=== PATIENT | male | born 1990 | race Caucasian/White ===

== ENCOUNTER 2016-07-21 18:23 | Emergency (ER) | payer OTHER ==
[~2016-07-21] VITALS: Ht 170.2 cm; Wt 77.0 kg
[2016-07-21 18:34] VITALS: TEMP 36.8; Ht 170.2 cm; Wt 77.0 kg
--- NOTE | 2016-07-21 19:16 | DIAGNOSTIC IMAGING REPORT ---
LEFT KNEE 3 VIEWS HISTORY: left knee injury COMPARISON: None. FINDINGS: There is no fracture or dislocation. Prepatellar soft tissue swelling. No significant knee effusion. No radiopaque foreign bodies. IMPRESSION: No fractures. Anterior soft tissue swelling. Electronically signed by: Cirilo Montoya M.D. 07/21/2016 7:15 PM Dictated Date/Time: 07/21/2016 7:13 PM
--- NOTE | 2016-07-21 19:35 | EMERGENCY ROOM VISIT NOTE ---
ED Visit Note First contact with patient: 18:38 I have personally seen and evaluated the patient with the physician insurance sales assistant. I agree with the diagnostic/management decisions and have personally been involved in these decisions and agree with the diagnosis.
[2016-07-21] MEDS ORDERED: CEPHALEXIN 500MG HOME PACK 1 EA BTL PO ONE (19:45)
[2016-07-21] MEDS ORDERED: SEPTRA DS HOME PACK 1 EA VIAL PO ONE (19:45)
[2016-07-21] MEDS ORDERED: CEPH500C PO (20:12)
[2016-07-21] MEDS ORDERED: SULF800T23 PO (20:12)
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
[2016-07-21 20:21] VITALS: BP 123/73; PULSE 100; O2SAT 99
== END 2016-07-21 20:23 | disposition home or self-care (01) ==
LOC: C.EDB 18:23 → C.EDD 20:23
DX: S89.92XA Unspecified injury of left lower leg, initial encounter (principal); S80.212A Abrasion, left knee, initial encounter; M25.562 Pain in left knee; L03.116 Cellulitis of left lower limb; Y04.0XXA Assault by unarmed brawl or fight, initial encounter; Y92.89 Other specified places as the place of occurrence of the external cause

== ENCOUNTER 2016-10-20 21:15 | Emergency (ER) | payer OTHER ==
[~2016-10-20] VITALS: Ht 170.2 cm; Wt 84.4 kg
[2016-10-20 21:17] VITALS: TEMP 36.6; Ht 170.2 cm; Wt 84.4 kg
--- NOTE | 2016-10-20 22:19 | DIAGNOSTIC IMAGING REPORT ---
RIGHT PELVIS/UNILATERAL HIP 2-3VIEWS CLINICAL HISTORY: fall 20 ft, right hip/pelvic pain Right COMPARISON STUDY: None. FINDINGS: No fracture or dislocation within the pelvis or hips. The sacrum is intact. Soft tissues are unremarkable. IMPRESSION: No fracture or dislocation within the pelvis or hips. Electronically signed by: Cirilo Montoya M.D. 10/20/2016 10:18 PM Dictated Date/Time: 10/20/2016 10:16 PM
--- NOTE | 2016-10-20 22:53 | DIAGNOSTIC IMAGING REPORT ---
LUMBAR SPINE CT CT DOSE: 624.35 mGy.cm HISTORY: fall 20 ft, low back pain TECHNIQUE: Multiaxial CT images of the lumbar spine were performed and reformatted in the sagittal and coronal plane without the use of contrast. A dose lowering technique was utilized adhering to the principles of ALARA. COMPARISON: Lumbar spine 09/24/2010. FINDINGS: Stable mild anterior wedging at L1. No acute fracture or subluxation within the lumbar spine. Mild disc space narrowing at L5-S1, unchanged. Similar appearing soft tissue abnormality within the upper abdomen appears to be due to motion artifact. No change in the right L5-S1 paracentral focal disc protrusion. IMPRESSION: No acute fractures within the lumbar spine. Electronically signed by: Cirilo Montoya M.D. 10/20/2016 10:52 PM Dictated Date/Time: 10/20/2016 10:47 PM
[2016-10-20] MEDS ORDERED: KETOROLAC TROMETHAMINE 60 MG/2 ML VIAL IM STA (23:01)
[2016-10-20 23:23] VITALS: BP 110/61; PULSE 71; O2SAT 96
--- NOTE | 2016-10-20 23:35 | EMERGENCY ROOM VISIT NOTE ---
History First contact with patient: 21:24 Chief Complaint: FALL Stated Complaint: BACK PAIN,RT ARM NUMB,FINGERS TINGLING,FELL 20' History of Present Illness The patient is a 26 year old male who presents to the Emergency Room with complaints of low back pain and right hip pain after falling this morning off the roof. 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 Patient states he then developed low back pain and right hip pain. He describes the pain as aching, ranging in severity 5 out of 10 worse with movement and better with rest. He states occasionally his right forearm gets numb but is not constant. No numbness currently. Patient states he did not land on his back or hit his head. Patient denies head injury, headache, neck pain, upper back pain, numbness, tingling, weakness, arm pain, leg pain, heel pain, foot pain, chest pain, dyspnea, abdominal pain or any other medical complaints. Patient denies any alcohol or drug use today. He does smoke. He has a history of low back pain. Review of Systems See HPI for pertinent positives & negatives. A total of 10 systems reviewed and were otherwise negative. Past Medical/Surgical History Back pain Social History Smoking Status: Current Every Day Smoker Alcohol Use: none Drug Use: none Marital Status: in relationship Occupation Status: employed Current/Historical Medications No Active Prescriptions or Reported Meds Physical Exam Vital Signs Date Time Temp Pulse Resp B/P (MAP) Pulse Ox O2 Delivery O2 Flow Rate FiO2 10/20/16 22:15 77 18 95 10/20/16 22:01 106/76 10/20/16 22:00 81 95 10/20/16 21:57 142/60 10/20/16 21:17 36.6 103 16 148/86 96 Room Air Physical Exam PHYSICAL EXAM: VITALS: Vitals are noted on the nurse's note and reviewed by myself. Vital signs stable. GENERAL: White male, in no acute distress, nondiaphoretic, well-developed well- nourished. SKIN: The skin was without obvious lacerations or abrasions. Capillary reflex less than 2 seconds. HEAD: Normocephalic atraumatic. EARS: External auditory canals clear, tympanic membranes pearly miranda without erythema or effusion bilaterally. No hemotympanums. No interiano sign. No mastoid tenderness. EYES: Pupils equal round and reactive to light and accommodation. Conjunctivae without injection, sclerae without icterus. Extraocular movements intact. NOSE: Patent, turbinates without inflammation or discharge. No sinus tenderness. No septal hematoma or bleeding. FACE: No facial bone tenderness. Full range of motion of the jaw without tenderness. MOUTH: Mucous membranes moist. Pharynx without erythema or exudate. Uvula midline. Airway patent. Tongue does not deviate. NECK: Supple without nuchal rigidity. Cervical spine is nontender. Full range of motion of the neck without tenderness. No JVD. HEART: Regular rate and rhythm without murmurs gallops or rubs. LUNGS: Clear to auscultation bilaterally without wheezes, rales or rhonchi. No dullness to percussion. No retractions or accessory muscle use. No chest wall tenderness. ABDOMEN: Positive bowel sounds x 4. Normal tympanic percussion. Soft, nontender, without masses or organomegaly. No guarding or rebound tenderness. MUSCULOSKELETAL: No tenderness of the thoracic spine. Minimal lumbar tenderness over L4 and L5 without step-offs or bruising. Right hip minimally tender to palpation with full range of motion. No tenderness with pelvic rocking. Full range of motion without tenderness to palpation in all extremities. Normal gait. Strength 5/5 throughout. Peripheral pulses 2+. NEURO: Patient was alert and oriented to person place and time. Normal sensation to light and sharp touch. Negative Romberg and pronator drift. Cerebellar function intact. No focal neurological deficits. Medical Decision & Procedures Medications Administered Medications (Trade) Dose Ordered Sig/Luis Route Start Time Stop Time Status Last Admin Dose Admin Ketorolac Tromethamine (Toradol Inj) 60 mg NOW STAT IM 10/20/16 23:01 10/20/16 23:02 DC 10/20/16 23:19 60 MG ED Course Prior records/ancillary studies reviewed. Triage Nursing notes reviewed. The patient's history was concerning for traumatic injury Differential diagnosis: Etiologies such as fracture, dislocation, intra-abdominal, pneumothorax, intrathoracic , intracranial, neurologic, as well as other traumatic pathologies were entertained. Physical examination findings: As above. The patients vitals were stable. ER treatment provided: Patient was observed On reassessment the patient felt better. Vital signs were stable. Diagnostic interpretation by me: Imaging studies: ~ rep ct add3] LUMBAR SPINE CT CT DOSE: 624.35 mGy.cm HISTORY: fall 20 ft, low back pain TECHNIQUE: Multiaxial CT images of the lumbar spine were performed and reformatted in the sagittal and coronal plane without the use of contrast. A dose lowering technique was utilized adhering to the principles of ALARA. COMPARISON: Lumbar spine 09/24/2010. FINDINGS: Stable mild anterior wedging at L1. No acute fracture or subluxation within the lumbar spine. Mild disc space narrowing at L5-S1, unchanged. Similar appearing soft tissue abnormality within the upper abdomen appears to be due to motion artifact. No change in the right L5-S1 paracentral focal disc protrusion. IMPRESSION: No acute fractures within the lumbar spine. RIGHT PELVIS/UNILATERAL HIP 2-3VIEWS CLINICAL HISTORY: fall 20 ft, right hip/pelvic pain Right COMPARISON STUDY: None. FINDINGS: No fracture or dislocation within the pelvis or hips. The sacrum is intact. Soft tissues are unremarkable. IMPRESSION: No fracture or dislocation within the pelvis or hips. Electronically signed by: Cirilo Montoya M.D. 10/20/2016 10:52 PM This appears to be consistent with lumbar strain after fall. Patient was neurovascularly and neurologically intact. He did not have acute abdomen on exam. No other injuries are noted. The fall happened greater than 10 hours ago. Patient's been ambulate without difficulties. Patient was advised to take surgical and try anti-inflammatories for the pain. He is advised follow- up family care in a few days or here in the ER sooner for abdominal pain, chest pain, inability to walk, worsening signs or symptoms or as needed. Upon discharge, the patient requested something for pain. He was given a shot of Toradol. By the evaluation outlined above emergent etiologies such as fracture , dislocation, intra-abdominal, pneumothorax, pulmonary contusion, hemothorax, intracranial, neurologic,as well as others were deemed relatively unlikely. The pt informed about the findings as listed above. All questions were answered and pleased with the treatment. Return instructions were outlined and the patient was discharged in stable condition. Referral: The patient was referred to family [place] for follow-up in 2 to 3 days for a recheck of the current condition. Case reviewed with my attending Medical Decision As above Impression Primary Impression: Right hip pain Additional Impressions: Lumbar strain Fall Departure Information Dispostion Home / Self-Care Condition GOOD Prescriptions No Active Prescriptions or Reported Meds Forms HOME CARE DOCUMENTATION FORM, Work Instructions, Return To Work: 1 day IMPORTANT VISIT INFORMATION Patient Instructions Back Pain - [facility], My [facility] Additional Instructions Ibuprofen(Motrin, Advil) may be used for fever or pain. Use 600mg every six hours as needed. Take with food. Avoid using more than 2400mg in a 24 hour period. Do not use 2400mg per day for more than three consecutive days without physician direction. Prolonged inappropriate use can lead to stomach upset or ulcers. This medication can be taken if you need to drive, work, or perform activities which may be dangerous when taking narcotic pain medication. (AND/OR) Acetaminophen(Tylenol) may be used for fever or pain. Use 1000mg every six hours as needed. Avoid using more than 3000mg in a 24 hour period. This medication can be taken if you need to drive, work, or perform activities which may be dangerous when taking narcotic pain medication. Rest and avoid heavy lifting until your symptoms resolve and then gradually return to full activity. A good rule of thumb is if it hurts your back to perform a certain activity, then it should be avoided until you are healthy again. A heating pad, warm compresses, or a hot shower may help with tight muscles and can be done several times a day as needed. Continue current medications. Return to the ER immediately for any numbness, tingling, severe pain, loss of control of your bowels or bladder, inability to walk, abdominal pain, chest pain , or as needed. Follow up with your primary care physician within 3-5 days for a recheck of your current condition. Work Instructions Return To Work: 1 day Problem Qualifiers Additional Impressions: Lumbar strain Encounter type: initial encounter Qualified Codes: S39.012A - Strain of muscle, fascia and tendon of lower back, initial encounter
== END 2016-10-20 23:24 | disposition home or self-care (01) ==
LOC: C.EDB 21:17 → C.EDC 23:24
DX: M25.551 Pain in right hip (principal); S39.012A Strain of muscle, fascia and tendon of lower back, initial encounter; W13.2XXA Fall from, out of or through roof, initial encounter; Y92.018 Other place in single-family (private) house as the place of occurrence of the external cause; F17.210 Nicotine dependence, cigarettes, uncomplicated

== ENCOUNTER → 2017-09-28 | Outpatient (CLI) | payer OTHER ==
[~2017-09-28] MED LIST: BUPR1SUB23 SL; CEPH500C PO; SULF800T23 PO
== END | disposition home or self-care (01) ==
LOC: C.LAB 13:29
DX: Z02.83 Encounter for blood-alcohol and blood-drug test (principal)

== ENCOUNTER 2017-10-01 14:09 | Emergency (ER) | payer SELFPAY ==
[~2017-10-01] VITALS: Ht 170.2 cm; Wt 97.1 kg
[2017-10-01 14:27] VITALS: BP 122/87; PULSE 93; TEMP 36.7; O2SAT 100; Ht 170.2 cm; Wt 97.1 kg
[2017-10-01] MEDS ORDERED: LIDO/EPINEPHRINE/SOD BICARB 20 ML VIAL ONE (14:48)
[2017-10-01] MEDS ORDERED: CEFTRIAXONE SOD INJ 1 GM ADDVIAL IV STA (14:54)
[2017-10-01 15:06] LABS: BASO % 0.4 %; BASO ABS # 0.03 K/uL (0-0.2); EOS % 4.5 %; EOS ABS # 0.36 K/uL (0-0.5); HEMATOCRIT 41.2 % (42-52); HEMOGLOBIN 14.1 g/dL (14.0-18.0); IG# 0.01 K/uL (0.00-0.02); LYMPH % 35.1 %; LYMPH ABS # 2.79 K/uL (1.2-3.4); MEAN CELL VOLUME 83.9 fL (80-100); MEAN CORPUSCULAR HEMOGLOBIN 28.7 pg (25-34); MEAN CORPUSCULAR HGB CONC 34.2 g/dl (32-36); MEAN PLATELET VOLUME 10.2 fL (7.4-10.4); MONO % 8.7 %; MONO ABS # 0.69 K/uL (0.11-0.59); NEUT % 51.2 %; NEUT ABS # 4.07 K/uL (1.4-6.5); PLATELET COUNT 201 K/uL (130-400); RED CELL DISTRIBUTION WIDTH CV 14.3 % (11.5-14.5); RED CELL DISTRIBUTION WIDTH SD 43.6 fL (36.4-46.3); WHITE BLOOD COUNT 7.95 K/uL (4.8-10.8)
[2017-10-01 15:26] LABS: CALCIUM 8.3 mg/dl (8.5-10.1); CREATININE 0.84 mg/dl (0.60-1.40); POTASSIUM 3.9 mmol/L (3.5-5.1)
[2017-10-01] MEDS ORDERED: BUPR1SUB23 SL (15:33)
[2017-10-01] MEDS ORDERED: CEPH500C PO (15:40)
[2017-10-01] MEDS ORDERED: SULF800T23 PO (15:40)
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
== END 2017-10-01 16:20 | disposition home or self-care (01) ==
LOC: C.EDB 14:17
DX: L03.116 Cellulitis of left lower limb (principal); L02.413 Cutaneous abscess of right upper limb; F19.10 Other psychoactive substance abuse, uncomplicated; F17.200 Nicotine dependence, unspecified, uncomplicated